=== PATIENT | male | born 1960 | race Caucasian/White ===

== ENCOUNTER 2017-02-03 14:48 | Inpatient (IN) ==
[2017-02-03] MEDS ORDERED: *HR* Morphine 2 MG/ML SYRINGE IV ONE (15:04)
--- NOTE | 2017-02-03 15:04 | Emergency Department Note ---
Disposition Clinical Impression: Sepsis, Cellulitis and abscess of lower extremity Disposition: Admitted As Inpatient Condition: Critical General Adult HPI - General Chief complaint: ED Extremity Problem,Nontraumatic Stated complaint: Left Leg infected/post surgery/fever Time Seen by Provider: 02/03/17 14:59 Source: patient, family - History of Present Illness Pain Scale: 2 - Related Data Home Medications Medication Instructions Recorded Confirmed Lisinopril/Hydrochlorothiazide 1 tab PO DAILY 12/26/16 02/03/17 [Zestoretic 20-12.5 mg Tablet] PredniSONE 60 mg PO DAILY 12/26/16 02/03/17 Azithromycin [Azithromycin] 250 mg PO AD 02/03/17 02/03/17 Ergocalciferol (VITAMIN D2) 50,000 unit PO YAN 02/03/17 02/03/17 [Vitamin D2] Folic Acid [Folic Acid] 1 mg PO DAILY 02/03/17 02/03/17 Gabapentin [Neurontin] 300 mg PO QID 02/03/17 02/03/17 Methotrexate [Otrexup] 15 mg PO FR 02/03/17 02/03/17 OxyCODONE/APAP 5/325 [Percocet 1 tab PO Q6HR PRN 02/03/17 02/03/17 5/325 MG] Allergies Allergy/AdvReac Type Severity Reaction Status Date / Time No Known Allergies Allergy Verified 12/26/16 07:12 Past Medical History - Past Medical History Medical history: Reports: hypertension Psychiatric history: Reports: no psych history - Social History Smoking Status: Never smoker Smokeless Tobacco Status: No Alcohol use: Reports: none Drug use: Reports: none Physical Exam - General General appearance: alert Course Vital Signs Temperature 97.7 F 02/03/17 14:54 Pulse Rate 114 02/03/17 14:54 Respiratory Rate 18 02/03/17 14:54 Blood Pressure 140/80 02/03/17 14:54 O2 Sat by Pulse Oximetry 95 02/03/17 14:54 Temperature 100.4 F H 02/03/17 17:34 Pulse Rate 103 02/03/17 17:17 Respiratory Rate 24 02/03/17 17:37 Blood Pressure 146/92 02/03/17 17:37 O2 Sat by Pulse Oximetry 98 02/03/17 17:17 Oxygen Delivery Oxygen Delivery Room Air Medical Decision Making - Lab Data Result diagrams: 02/03/17 15:22 02/03/17 15:22 Lab Results 02/03/17 02/03/17 02/03/17 Range/Units 15:22 15:22 15:22 WBC 19.9 H (4.3-11.1) K/mcL RBC 5.10 (4.19-5.50) M/mcL Hgb 14.9 (12.9-16.9) g/dL Hct 45.2 (37.5-50.1) % MCV 88.6 (83.0-100.0) fL MCH 29.2 (28.0-33.3) pg MCHC 33.0 (31.6-35.5) g/dL RDW 18.1 H (11.5-14.5) % Plt Count 205 (140-400) K/mcL MPV 9.0 L (9.4-12.4) fL Immature Gran % 1.6 (0-4) % Seg Neutrophils % 86.5 % Lymphocytes % 5.0 % Monocytes % 6.4 % Eosinophils % 0.1 % Basophils % 0.4 % Neutrophils # 17.2 H (1.6-8.9) K/mcL Lymphocytes # 1.0 (0.6-4.6) K/mcL Monocytes # 1.3 (0.0-1.3) K/mcL Eosinophils # 0.0 (0.0-0.6) K/mcL Basophils # 0.1 (0.0-0.2) K/mcL ESR 43 H (0-10) mm/hr PT 12.0 (9.4-12.1) Seconds INR 1.1 Sodium (136-145) mEq/L Potassium (3.5-4.5) mEq/L Chloride (98-109) mEq/L Carbon Dioxide (19-29) mEq/L BUN (8-26) mg/dL Creatinine (0.72-1.25) mg/dL Est GFR ( Amer) (> 60) Est GFR (Non-Af Amer) (> 60) BUN/Creatinine Ratio (6-26) Glucose (70-99) mg/dL Calculated Osmolality (280-300) Lactic Acid (0.5-2.2) mmol/L Calcium (8.6-10.8) mg/dL Total Bilirubin (0.2-1.2) mg/dL AST (5-34) Units/L ALT (0-55) Units/L Alkaline Phosphatase (38-126) Units/L C-Reactive Protein (Less than 5) mg/L Serum Total Protein (6.0-8.3) g/dL Albumin (3.5-5.0) g/dL Globulin (2.4-3.5) g/dL Albumin/Globulin Ratio (1.1-2.2) 02/03/17 02/03/17 Range/Units 15:22 15:22 WBC (4.3-11.1) K/mcL RBC (4.19-5.50) M/mcL Hgb (12.9-16.9) g/dL Hct (37.5-50.1) % MCV (83.0-100.0) fL MCH (28.0-33.3) pg MCHC (31.6-35.5) g/dL RDW (11.5-14.5) % Plt Count (140-400) K/mcL MPV (9.4-12.4) fL Immature Gran % (0-4) % Seg Neutrophils % % Lymphocytes % % Monocytes % % Eosinophils % % Basophils % % Neutrophils # (1.6-8.9) K/mcL Lymphocytes # (0.6-4.6) K/mcL Monocytes # (0.0-1.3) K/mcL Eosinophils # (0.0-0.6) K/mcL Basophils # (0.0-0.2) K/mcL ESR (0-10) mm/hr PT (9.4-12.1) Seconds INR Sodium 133 L (136-145) mEq/L Potassium 4.2 (3.5-4.5) mEq/L Chloride 98 (98-109) mEq/L Carbon Dioxide 24 (19-29) mEq/L BUN 17 (8-26) mg/dL Creatinine 0.74 (0.72-1.25) mg/dL Est GFR ( Amer) > 60 (> 60) Est GFR (Non-Af Amer) > 60 (> 60) BUN/Creatinine Ratio 23 (6-26) Glucose 111 H (70-99) mg/dL Calculated Osmolality 278 L (280-300) Lactic Acid 2.5 H (0.5-2.2) mmol/L Calcium 9.7 (8.6-10.8) mg/dL Total Bilirubin 1.2 (0.2-1.2) mg/dL AST 13 (5-34) Units/L ALT 27 (0-55) Units/L Alkaline Phosphatase 54 (38-126) Units/L C-Reactive Protein 33 H (Less than 5) mg/L Serum Total Protein 6.9 (6.0-8.3) g/dL Albumin 3.6 (3.5-5.0) g/dL Globulin 3.3 (2.4-3.5) g/dL Albumin/Globulin Ratio 1.1 (1.1-2.2) Critical Care Time Critical Care Time: Yes Total Critical Care Time: 30 Attestation: The patient presented with cellulitis and meets criteria for sepsis with leukocytosis, elevated lactic acid, tachycardia. Broad spectrum antibiotics initiated and patient admitted to the medicine service Attestation Statement - Attestation Attestation: I examined this patient and my medical decision-making was reviewed with the [employer]ACING [employer] SET UP OPERATOR/PA/Advanced Practice Nurse/Resident Physician. I agree with the documented findings, disposition and treatment plan as described except to the extent set forth below. Face to face time provided Patient presents with erythema and swelling to his left thigh at the site of a recent muscle biopsy. He also reports chills, fevers, inability to sleep. Erythema with increased palpable tenderness present on exam.
[2017-02-03] MEDS ORDERED: Vancomycin 1,000 MG in D5% in Water 250 ML IVPB ONE (15:05)
[2017-02-03] MEDS ORDERED: Piperacillin/Tazobactam 3.375 GM in D5% in Water (Mini-Bag+) 100 ML IVPB ONE (15:05)
[2017-02-03] MEDS ORDERED: Ondansetron 4 MG/2 ML VIAL IVP STA (15:16)
[2017-02-03 15:34] LABS: Basophils # 0.1 K/mcL (0.0-0.2); Basophils % 0.4 %; Eosinophils % 0.1 %; Hematocrit 45.2 % (37.5-50.1); Hemoglobin 14.9 g/dL (12.9-16.9); Immature Granulocytes % 1.6 % (0-4); Mean Corpuscular Hemoglobin 29.2 pg (28.0-33.3); Mean Corpuscular Volume 88.6 fL (83.0-100.0); Monocytes # 1.3 K/mcL (0.0-1.3); Monocytes % 6.4 %; Neutrophils # 17.2 K/mcL (1.6-8.9); Platelet Count 205 K/mcL (140-400); Red Cell Distribution Width 18.1 % (11.5-14.5); Segmented Neutrophils % 86.5 %
--- NOTE | 2017-02-03 15:37 | Emergency Department Note ---
Disposition Clinical Impression: Cellulitis and abscess of lower extremity Sepsis Qualifiers: Sepsis type: sepsis due to unspecified organism Qualified Code(s): A41.9 - Sepsis, unspecified organism Disposition: Admitted As Inpatient Condition: Critical General Adult HPI - General Chief complaint: ED Extremity Problem,Nontraumatic Stated complaint: Left Leg infected/post surgery/fever Time Seen by Provider: 02/03/17 14:59 Source: patient, family Nursing Notes Reviewed: Yes Vital Signs Reviewed: Yes - History of Present Illness HPI Narrative: Mr. Martínez, a 56 yo male, presents from home by KUB with chief complaint of pain in his left thigh. Patient had a muscle biopsy performed in his left thigh on [address] Alvarez. The postop incision was well-healed. Approximately 1 week ago, patient noticed erythema on the distal aspect of the incision site. 4 days ago, patient had a single episode of pustulant drainage from the same area. This morning, patient noted chills, subjective fever, nausea, increased area of erythema. He became concerned about infection presents to the emergency department. He does have follow-up tomorrow with Dr. Alvarez but became concerned at the subjective fever and chills with the addition of mild confusion. Patient has been on methotrexate and steroids for the past 2-3 months. PMH: Hypertension, chronic vascular disease which is currently unknown to the patient or his and reportedly rare requiring biopsy for diagnosis. Pain Scale: 2 - Related Data Home Medications Medication Instructions Recorded Confirmed Lisinopril/Hydrochlorothiazide 1 tab PO DAILY 12/26/16 02/03/17 [Zestoretic 20-12.5 mg Tablet] PredniSONE 60 mg PO DAILY 12/26/16 02/03/17 Azithromycin [Azithromycin] 250 mg PO AD 02/03/17 02/03/17 Ergocalciferol (VITAMIN D2) 50,000 unit PO YAN 02/03/17 02/03/17 [Vitamin D2] Folic Acid [Folic Acid] 1 mg PO DAILY 02/03/17 02/03/17 Gabapentin [Neurontin] 300 mg PO QID 02/03/17 02/03/17 Methotrexate [Otrexup] 15 mg PO FR 02/03/17 02/03/17 OxyCODONE/APAP 5/325 [Percocet 1 tab PO Q6HR PRN 02/03/17 02/03/17 5/325 MG] Allergies Allergy/AdvReac Type Severity Reaction Status Date / Time No Known Allergies Allergy Verified 12/26/16 07:12 All systems ED: reviewed and negative except as stated. Constitutional: Reports: fever, chills, weakness Cardiovascular: Denies: chest pain, palpitations, dyspnea on exertion Respiratory: Denies: cough, dyspnea, wheezes Gastrointestinal: Reports: nausea. Denies: abdominal pain, vomiting, diarrhea, constipation Genitourinary: Denies: urgency, dysuria, frequency Musculoskeletal: Denies: back pain, neck pain, joint swelling Integumentary: Reports: lesions Hematological/Lymphatic: Denies: easy bleeding, easy bruising Past Medical History - Past Medical History Medical history: Reports: hypertension Psychiatric history: Reports: no psych history - Social History Smoking Status: Never smoker Smokeless Tobacco Status: No Alcohol use: Reports: none Drug use: Reports: none Physical Exam General: Patient is alert, oriented, and appears uncomfortable. HEENT: No facial asymmetry. Head is normocephalic and atraumatic. Trachea midline. Cardiovascular: Heart regular rate and rhythm without clicks, rubs, gallops, or murmurs. No JVD. PMI nondisplaced. Respiratory: Symmetric chest rise with good respiratory effort. Bilateral breath sounds are clear without wheezing, crackles, or rhonchi. Abdomen: Obese. Bowel sounds present normoactive x-4 quadrants. Abdomen is soft, nondistended, and nontender. No organomegaly noted. Skin: Linear surgical scar with approximately 3 cm x 2 cm area of erythema, tense, painful, lives at the epicenter of surrounding larger mild erythema approximately the size of the patient's hand. These borders have been marked, initialed, dated, and timed. Psych: Patient's affect is appropriate for situation. - General General appearance: alert Course Course Narrative: Patient SIRS positive with AMS, tachycardia, and leukocytosis. Infectious source is his left thigh biopsy wound. Lactate is elevated at 2.5. We will provide analgesia, 3 mL/kg IV fluids, empiric antibiotics. Will begin the admission process. 17:24 Patient is chilling. Temperature is 100.4. Will dose by mouth Tylenol. Spoke with the hospitalist, Dr. Hernandez, who agrees to accept the patient. Vital Signs Temperature 97.7 F 02/03/17 14:54 Pulse Rate 114 02/03/17 14:54 Respiratory Rate 18 02/03/17 14:54 Blood Pressure 140/80 02/03/17 14:54 O2 Sat by Pulse Oximetry 95 02/03/17 14:54 Temperature 100.4 F H 02/03/17 17:34 Pulse Rate 103 02/03/17 17:17 Respiratory Rate 24 02/03/17 17:37 Blood Pressure 146/92 02/03/17 17:37 O2 Sat by Pulse Oximetry 98 02/03/17 17:17 Oxygen Delivery Oxygen Delivery Room Air Medical Decision Making - Lab Data Result diagrams: 02/03/17 15:22 02/03/17 15:22 Lab Results 02/03/17 02/03/17 02/03/17 Range/Units 15:22 15:22 15:22 WBC 19.9 H (4.3-11.1) K/mcL RBC 5.10 (4.19-5.50) M/mcL Hgb 14.9 (12.9-16.9) g/dL Hct 45.2 (37.5-50.1) % MCV 88.6 (83.0-100.0) fL MCH 29.2 (28.0-33.3) pg MCHC 33.0 (31.6-35.5) g/dL RDW 18.1 H (11.5-14.5) % Plt Count 205 (140-400) K/mcL MPV 9.0 L (9.4-12.4) fL Immature Gran % 1.6 (0-4) % Seg Neutrophils % 86.5 % Lymphocytes % 5.0 % Monocytes % 6.4 % Eosinophils % 0.1 % Basophils % 0.4 % Neutrophils # 17.2 H (1.6-8.9) K/mcL Lymphocytes # 1.0 (0.6-4.6) K/mcL Monocytes # 1.3 (0.0-1.3) K/mcL Eosinophils # 0.0 (0.0-0.6) K/mcL Basophils # 0.1 (0.0-0.2) K/mcL ESR 43 H (0-10) mm/hr PT 12.0 (9.4-12.1) Seconds INR 1.1 Sodium (136-145) mEq/L Potassium (3.5-4.5) mEq/L Chloride (98-109) mEq/L Carbon Dioxide (19-29) mEq/L BUN (8-26) mg/dL Creatinine (0.72-1.25) mg/dL Est GFR ( Amer) (> 60) Est GFR (Non-Af Amer) (> 60) BUN/Creatinine Ratio (6-26) Glucose (70-99) mg/dL Calculated Osmolality (280-300) Lactic Acid (0.5-2.2) mmol/L Calcium (8.6-10.8) mg/dL Total Bilirubin (0.2-1.2) mg/dL AST (5-34) Units/L ALT (0-55) Units/L Alkaline Phosphatase (38-126) Units/L C-Reactive Protein (Less than 5) mg/L Serum Total Protein (6.0-8.3) g/dL Albumin (3.5-5.0) g/dL Globulin (2.4-3.5) g/dL Albumin/Globulin Ratio (1.1-2.2) 02/03/17/04/17 Range/Units 15:22 15:22 WBC (4.3-11.1) K/mcL RBC (4.19-5.50) M/mcL Hgb (12.9-16.9) g/dL Hct (37.5-50.1) % MCV (83.0-100.0) fL MCH (28.0-33.3) pg MCHC (31.6-35.5) g/dL RDW (11.5-14.5) % Plt Count (140-400) K/mcL MPV (9.4-12.4) fL Immature Gran % (0-4) % Seg Neutrophils % % Lymphocytes % % Monocytes % % Eosinophils % % Basophils % % Neutrophils # (1.6-8.9) K/mcL Lymphocytes # (0.6-4.6) K/mcL Monocytes # (0.0-1.3) K/mcL Eosinophils # (0.0-0.6) K/mcL Basophils # (0.0-0.2) K/mcL ESR (0-10) mm/hr PT (9.4-12.1) Seconds INR Sodium 133 L (136-145) mEq/L Potassium 4.2 (3.5-4.5) mEq/L Chloride 98 (98-109) mEq/L Carbon Dioxide 24 (19-29) mEq/L BUN 17 (8-26) mg/dL Creatinine 0.74 (0.72-1.25) mg/dL Est GFR ( Amer) > 60 (> 60) Est GFR (Non-Af Amer) > 60 (> 60) BUN/Creatinine Ratio 23 (6-26) Glucose 111 H (70-99) mg/dL Calculated Osmolality 278 L (280-300) Lactic Acid 2.5 H (0.5-2.2) mmol/L Calcium 9.7 (8.6-10.8) mg/dL Total Bilirubin 1.2 (0.2-1.2) mg/dL AST 13 (5-34) Units/L ALT 27 (0-55) Units/L Alkaline Phosphatase 54 (38-126) Units/L C-Reactive Protein 33 H (Less than 5) mg/L Serum Total Protein 6.9 (6.0-8.3) g/dL Albumin 3.6 (3.5-5.0) g/dL Globulin 3.3 (2.4-3.5) g/dL Albumin/Globulin Ratio 1.1 (1.1-2.2)
[2017-02-03 15:41] LABS: INR 1.1
[2017-02-03 15:51] LABS: Alanine Aminotransferase 27 Units/L (0-55); Albumin 3.6 g/dL (3.5-5.0); Albumin/Globulin Ratio 1.1 (1.1-2.2); Alkaline Phosphatase 54 Units/L (38-126); Aspartate Amino Transferase 13 Units/L (5-34); BUN/Creatinine Ratio 23 (6-26); Bilirubin,Total 1.2 mg/dL (0.2-1.2); Blood Urea Nitrogen 17 mg/dL (8-26); C-Reactive Protein 33 mg/L (Less than 5); Calcium 9.7 mg/dL (8.6-10.8); Carbon Dioxide 24 mEq/L (19-29); Chloride 98 mEq/L (98-109); Globulin 3.3 g/dL (2.4-3.5); Glucose 111 mg/dL (70-99); Osmolality,Calculated 278 (280-300); Potassium 4.2 mEq/L (3.5-4.5); Sodium 133 mEq/L (136-145); Total Protein 6.9 g/dL (6.0-8.3); eGFR For African Americans > 60 (> 60); eGFR For Non-African Americans > 60 (> 60)
[2017-02-03] MEDS ORDERED: SODIUM CHLORIDE IVC SCH (16:00)
[2017-02-03] MEDS ORDERED: Acetaminophen 325 MG TABLET PO ONE (17:23)
[2017-02-03] MEDS ORDERED: *HR* OxyCODONE/APAP 5/325 TABLET PO PRN (19:59)
[2017-02-03] MEDS ORDERED: Vancomycin 1,750 MG in D5% in Water 250 ML IVPB SCH (20:00)
[2017-02-03] MEDS ORDERED: Ondansetron 4 MG/2 ML VIAL IVP PRN (20:05)
[2017-02-03] MEDS ORDERED: *HR* Morphine 2 MG/ML SYRINGE IVP PRN (20:05)
[2017-02-03] MEDS ORDERED: Naloxone 0.4 MG/ML INJ IVP PRN (20:05)
--- NOTE | 2017-02-03 20:21 | Internal Med History&Physical ---
Date of Encounter: 02/03/17 Time of Encounter: 18:15 Internal Medicine - H&P: HPI Chief complaint: fever, confusion, left thig pain and wound wound dehiscence and infection. Admitted From: Emergency Dept Plans for Post Hospital Care: Home History of present illness: Mr. 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 presents 1 day of confusion and fever. He also reports purulent discharged from a post-surgical thigh wound dehiscence of 1 week duration, as well as pain and redness in the surgical site. He underwent left lateral thigh muscle biopsy as part of evaluation for a probable rheumatides/vasculitic disorder on 12/26/2016. The procedure was performed by Dr Ferris on recommendation of his acute care clinical nurse specialist, Dr Weeks. The incison apparently healed well, only to breakdown in its lower end with purulent discharge 1 week ago. He reports constitutional symptoms like fever, chills, and diaphoresis. He also reports extending erythema at the wound site. No urinary symptoms. Besides confusion, no other new-onset neurological symptoms, specifcally no neck stiffness, headaches, blurry vision or focal weakness. No diarrhea or constipation. He has taking corticosteroids and methotrexate for 3 months. He is FULL CODE per discussion. He nominates his , Blessing Martínez ([phone]) as his NOK/POA. ROS: A 10 point ROS was performed. see HPI. Positives and relevant negatives are detailed, system-symptom not mention assumed negative unless otherwise stated. Family history: HTN, HLD. CAD. DM2. Vital Signs Temperature 97.7 F 02/03/17 14:54 Pulse Rate 114 02/03/17 14:54 Respiratory Rate 18 02/03/17 14:54 Blood Pressure 140/80 02/03/17 14:54 O2 Sat by Pulse Oximetry 95 02/03/17 14:54 Temperature 100.4 F H 02/03/17 17:34 Pulse Rate 103 02/03/17 17:17 Respiratory Rate 24 02/03/17 17:37 Blood Pressure 146/92 02/03/17 17:37 O2 Sat by Pulse Oximetry 98 02/03/17 17:17 Not in distress, he is ill or toxic looking. lethargic. Flushed in the face and upper torso. He has Cushingnoid features. Not pale, anicteric, afebrile, acyanotic. Moist mucosa, no JVD. EOMI, PERRL. HEENT: No JVD, no cervical lymphadenopathy, Chest : CTAB Heart: RRR, HS1/2, no m/r/g. Abdomen: soft, obesely distended, non-tender, no guarding, no rebound, no masses, BS+ : No flank tenderness, no CVA tenderness, no suprapubic tenderness. RESHIPPING CLERK: AAO x 3, no focal neurological deficits. He intermittent somnolent, but very logical in is thought process. Neck is supple. Skin: Erythema around surgical scar with dehiscence of lower end of scar, tender ++, some fluctuance elicited, no other active skin lesion, loss of skin tugor. No inguinal lymphadenopathy. Extremities: No pedal edema, normal pedal pulses, no calf tenderness. Lab Results 02/03/17 02/03/17 02/03/17 Range/Units 15:22 15:22 15:22 WBC 19.9 H (4.3-11.1) K/mcL RBC 5.10 (4.19-5.50) M/mcL Hgb 14.9 (12.9-16.9) g/dL Hct 45.2 (37.5-50.1) % MCV 88.6 (83.0-100.0) fL MCH 29.2 (28.0-33.3) pg MCHC 33.0 (31.6-35.5) g/dL RDW 18.1 H (11.5-14.5) % Plt Count 205 (140-400) K/mcL MPV 9.0 L (9.4-12.4) fL Immature Gran % 1.6 (0-4) % Seg Neutrophils % 86.5 % Lymphocytes % 5.0 % Monocytes % 6.4 % Eosinophils % 0.1 % Basophils % 0.4 % Neutrophils # 17.2 H (1.6-8.9) K/mcL Lymphocytes # 1.0 (0.6-4.6) K/mcL Monocytes # 1.3 (0.0-1.3) K/mcL Eosinophils # 0.0 (0.0-0.6) K/mcL Basophils # 0.1 (0.0-0.2) K/mcL ESR 43 H (0-10) mm/hr PT 12.0 (9.4-12.1) Seconds INR 1.1 Sodium (136-145) mEq/L Potassium (3.5-4.5) mEq/L Chloride (98-109) mEq/L Carbon Dioxide (19-29) mEq/L BUN (8-26) mg/dL Creatinine (0.72-1.25) mg/dL Est GFR ( Amer) (> 60) Est GFR (Non-Af Amer) (> 60) BUN/Creatinine Ratio (6-26) Glucose (70-99) mg/dL Calculated Osmolality (280-300) Lactic Acid (0.5-2.2) mmol/L Calcium (8.6-10.8) mg/dL Total Bilirubin (0.2-1.2) mg/dL AST (5-34) Units/L ALT (0-55) Units/L Alkaline Phosphatase (38-126) Units/L C-Reactive Protein (Less than 5) mg/L Serum Total Protein (6.0-8.3) g/dL Albumin (3.5-5.0) g/dL Globulin (2.4-3.5) g/dL Albumin/Globulin Ratio (1.1-2.2) 02/03/17 02/03/17 Range/Units 15:22 15:22 WBC (4.3-11.1) K/mcL RBC (4.19-5.50) M/mcL Hgb (12.9-16.9) g/dL Hct (37.5-50.1) % MCV (83.0-100.0) fL MCH (28.0-33.3) pg MCHC (31.6-35.5) g/dL RDW (11.5-14.5) % Plt Count (140-400) K/mcL MPV (9.4-12.4) fL Immature Gran % (0-4) % Seg Neutrophils % % Lymphocytes % % Monocytes % % Eosinophils % % Basophils % % Neutrophils # (1.6-8.9) K/mcL Lymphocytes # (0.6-4.6) K/mcL Monocytes # (0.0-1.3) K/mcL Eosinophils # (0.0-0.6) K/mcL Basophils # (0.0-0.2) K/mcL ESR (0-10) mm/hr PT (9.4-12.1) Seconds INR Sodium 133 L (136-145) mEq/L Potassium 4.2 (3.5-4.5) mEq/L Chloride 98 (98-109) mEq/L Carbon Dioxide 24 (19-29) mEq/L BUN 17 (8-26) mg/dL Creatinine 0.74 (0.72-1.25) mg/dL Est GFR ( Amer) > 60 (> 60) Est GFR (Non-Af Amer) > 60 (> 60) BUN/Creatinine Ratio 23 (6-26) Glucose 111 H (70-99) mg/dL Calculated Osmolality 278 L (280-300) Lactic Acid 2.5 H (0.5-2.2) mmol/L Calcium 9.7 (8.6-10.8) mg/dL Total Bilirubin 1.2 (0.2-1.2) mg/dL AST 13 (5-34) Units/L ALT 27 (0-55) Units/L Alkaline Phosphatase 54 (38-126) Units/L C-Reactive Protein 33 H (Less than 5) mg/L Serum Total Protein 6.9 (6.0-8.3) g/dL Albumin 3.6 (3.5-5.0) g/dL Globulin 3.3 (2.4-3.5) g/dL Albumin/Globulin Ratio 1.1 (1.1-2.2) xr: thigh: no radiopague foreign body thigh in the region of the surgical site. IMP Acute encephalopathy related to sepsis Sepsis complicating post-surgical wound infection Wound dehiscence differentials include: poor wound healing related to corticosteroid use, stitch/chronic inflammatory abscess Immunosuppression patient on Methotrexate and high dose prednisone. 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 PLAN Admit IVF NS @ 100 CT thigh with IV contrast IV Unasyn and vancomycin. Blood culture x 2, wound culture Optimal analgesia Hold methotrexate, continue prednisone Recheck lactate in the AM Hold Lisinopril/HCTZ in the setting of sepsis (risk of hypotension) and renal protection after administration of IV contrast. Continue essential medications of chronic morbidities Lovenox 40mg SC for DVT prophylaxis Protonix 40 mg QD for GI prophylaxis. I discussed my assessment with the patient, his was at bedside, they verbalized understanding and are agreeable to admission. He is at risk from deterioration from sepsis. Past Med Surg Social Fam HX - Past Medical History Medical history: hypertension Psychiatric history: no psych history - Social History Smoking Status: Never smoker Smokeless Tobacco Status: No Alcohol use: none Drug use: none Internal Medicine - H&P: Meds Lisinopril/Hydrochlorothiazide [Zestoretic 20-12.5 mg Tablet] 1 tab PO DAILY [History] PredniSONE 60 mg PO DAILY 12/26/16 [History] Azithromycin [Azithromycin] 250 mg PO AD 02/03/17 [History] Ergocalciferol (VITAMIN D2) [Vitamin D2] 50,000 unit PO YAN 02/03/17 [History] Folic Acid [Folic Acid] 1 mg PO DAILY 02/03/17 [History] Gabapentin [Neurontin] 300 mg PO QID 02/03/17 [History] Methotrexate [Otrexup] 15 mg PO FR 02/03/17 [History] OxyCODONE/APAP 5/325 [Percocet 5/325 MG] 1 tab PO Q6HR PRN 02/03/17 [History] Allergies No Known Allergies Allergy (Verified 12/26/16 07:12) All Systems PM: A 10-system review of systems was performed and is negative for pertinent findings except as documented above in the HPI. - Constitutional Vitals: Temp Pulse Resp BP Pulse Ox 98.2 F 100 20 137/78 97 02/03/17 19:38 02/03/17 19:38 02/03/17 19:38 02/03/17 19:38 02/03/17 19:38 Internal Med - H&P Results - Labs CBC & Chem 7: 02/03/17 15:22 02/03/17 15:22
[2017-02-03] MEDS: 0.9 % Sodium Chloride 1,000 ML IVC SCH (20:50)
[2017-02-03] MEDS: Gabapentin 300 MG CAPSULE PO SCH (20:52)
[2017-02-03] MEDS: Ampicillin/Sulbactam 3,000 MG in 0.9 % Sodium Chloride Mini Bag 100 ML IVPB SCH (23:54)
[2017-02-04] MEDS: Vancomycin 2,000 MG in D5% in Water 500 ML IVPB SCH ×2 (00:54→14:08)
[2017-02-04] MEDS: Ampicillin/Sulbactam 3,000 MG in 0.9 % Sodium Chloride Mini Bag 100 ML IVPB SCH ×3 (05:55→16:38)
[2017-02-04] MEDS: Folic Acid 1 MG TABLET PO SCH (08:04)
[2017-02-04] MEDS: Gabapentin 300 MG CAPSULE PO SCH ×4 (08:04→20:37)
[2017-02-04] MEDS: predniSONE 20 MG TABLET PO SCH (08:04)
--- NOTE | 2017-02-04 12:43 | Internal Med Progress Note ---
<Hakan Hess - Last Filed: 02/04/17 13:32> Date of Encounter: 02/04/17 Time of Encounter: 09:00 - Assessment and plan (1) Cellulitis and abscess of lower extremity Current Visit: Yes Status: Acute Assessment and plan: Significant improvement in the area of erythema No current exudate Continue current antibiotics (2) Altered mental status Current Visit: Yes Status: Acute Assessment and plan: Per emergency room physician and admitting hospitalist the patient was experiencing some confusion By all appearances this has resolved, patient is A&O 4 and demonstrates no signs of confusion currently Possibly secondary to steroids, methotrexate, or infection continue to monitor Qualifiers: Qualified Code(s): R41.82 - Altered mental status, unspecified (3) Sepsis Current Visit: Yes Status: Acute Assessment and plan: Patient with AMS, tachycardia, and leukocytosis Heart rate is trending down Continue to monitor Qualifiers: Sepsis type: sepsis due to unspecified organism Qualified Code(s): A41.9 - Sepsis, unspecified organism (4) DVT prophylaxis Current Visit: Yes Status: Acute - Subjective Interval history: Patient was seen and examined at bedside this morning. He was alert and oriented to person place time and situation. He is still having some pain in his left anterior thigh but states that this is much improved. He denies fevers /chills. He denies chest pain, shortness of breath, abdominal pain, or other new complaints. - Constitutional Vitals: Temp Pulse Resp BP Pulse Ox 97.7 F 88 18 128/76 96 02/04/17 11:37 02/04/17 11:37 02/04/17 11:37 02/04/17 11:37 02/04/17 11:37 - Head Head exam: Present: atraumatic, normocephalic - Eye Eye exam: Present: PERRL, conjuntiva pink, sclera anicteric Pupils: Present: PERRL - Neck Neck exam general surgery: Present: supple, trachea midline. Absent: lymphadenopathy - Respiratory Respiratory exam: Present: CTAB. Absent: accessory muscle use, rales, rhonchi, wheezes - Cardiovascular Cardiovascular exam: Present: RRR, +S1, +S2. Absent: diastolic murmur, gallop, rubs, systolic murmur - GI/Abdominal GI/Abdominal exam: Present: normal bowel sounds, soft, no peritoneal signs. Absent: distended, tenderness - Extremities Exam Extremities exam: Present: warm, radial pulses palpable and symetrical. Absent : calf tenderness, cyanotic, pedal edema Additional comments: Left anterior thigh with healing wound from prior biopsy site. There is no current exudate. There is some surrounding erythema and patient is still very tender to palpation however the erythema has regressed significantly relative to yesterday based on outline drawn by a marker on his skin - Neurological Exam Neurological exam: Present: oriented X3. Absent: pronater drift, facial droop, speech deficit - Skin Skin exam: Present: dry, intact Internal Medicine: Result - Labs CBC & Chem 7: 02/03/17 15:22 02/03/17 15:22 - ABG Interpretation ABG results: PT/INR, D-dimer PT 12.0 Seconds (9.4-12.1) 02/03/17 15:22 Consult Discharge Plan - Plan Referrals: David Velazquez DO [Primary Care Provider] - <Kaiden Zheng - Last Filed: 02/04/17 18:00> Date of Encounter: 02/04/17 - Constitutional Vitals: Temp Pulse Resp BP Pulse Ox 97.6 F 89 18 130/83 97 02/04/17 14:33 02/04/17 14:33 02/04/17 14:33 02/04/17 14:33 02/04/17 14:33 Internal Medicine: Result - Labs CBC & Chem 7: 02/03/17 15:22 02/03/17 15:22 - ABG Interpretation ABG results: PT/INR, D-dimer PT 12.0 Seconds (9.4-12.1) 02/03/17 15:22 - Attending Attestation I examined this patient and my medical decision-making was reviewed with the FILL TECHNICIAN/PA/Advanced Practice Nurse/Resident Physician. I agree with the documented findings, disposition and treatment plan as described except to the extent set forth below. Mr Martínez. PMH of Vasculitis. Admitted used to AMS? and possible sepsis, infection of the thigh, area where he had a biopsy recently. On IV antibiotics, both Unasyn and vancomycin. Leukocytosis on admission. However, is likely due to the fact that he is taking high-dose steroids, had leukocutosis in the past (always). Patient on both steroids and methotrexate as outpatient for his diagnosis of vasculitis. Will repeat a CBC tomorrow, he looks stable, might be discharged tomorrow in a.m. with by mouth antibiotics and continue with steroids and MTX. He follows up with Dr. Weeks in our rheumatology clinic.
[2017-02-04] MEDS: 0.9 % Sodium Chloride 1,000 ML IVC SCH (16:40)
[2017-02-05] MEDS: 0.9 % Sodium Chloride 1,000 ML IVC SCH ×4 (00:07→20:40)
[2017-02-05] MEDS: Ampicillin/Sulbactam 3,000 MG in 0.9 % Sodium Chloride Mini Bag 100 ML IVPB SCH ×5 (00:09→23:24)
[2017-02-05] MEDS: Vancomycin 2,000 MG in D5% in Water 500 ML IVPB SCH ×2 (00:44→13:23)
[2017-02-05] MEDS: *HR* OxyCODONE/APAP 5/325 TABLET PO PRN (05:52)
[2017-02-05] MEDS: predniSONE 20 MG TABLET PO SCH (07:39)
[2017-02-05] MEDS: Gabapentin 300 MG CAPSULE PO SCH ×4 (07:39→20:40)
[2017-02-05] MEDS: Folic Acid 1 MG TABLET PO SCH (07:39)
--- NOTE | 2017-02-05 08:01 | Internal Med Progress Note ---
Date of Encounter: 02/05/17 - Constitutional Vitals: Temp Pulse Resp BP Pulse Ox 98.1 F 94 16 127/75 97 02/05/17 06:50 02/05/17 06:50 02/05/17 06:50 02/05/17 06:50 02/05/17 06:50 Internal Medicine: Result - Labs CBC & Chem 7: 02/03/17 15:22 02/03/17 15:22 - ABG Interpretation ABG results: PT/INR, D-dimer PT 12.0 Seconds (9.4-12.1) 02/03/17 15:22 Consult Discharge Plan - Plan Referrals: David Velazquez DO [Primary Care Provider] -
[2017-02-05 08:23] LABS: Basophils % 0.3 %; Eosinophils # 0.1 K/mcL (0.0-0.6); Eosinophils % 0.7 %; Hematocrit 35.8 % (37.5-50.1); Immature Granulocytes % 1.5 % (0-4); Lymphocytes # 0.9 K/mcL (0.6-4.6); Lymphocytes % 7.1 %; Mean Corpuscular HGB Conc 32.4 g/dL (31.6-35.5); Mean Corpuscular Hemoglobin 29.1 pg (28.0-33.3); Mean Corpuscular Volume 89.9 fL (83.0-100.0); Mean Platelet Volume 9.3 fL (9.4-12.4); Monocytes # 0.7 K/mcL (0.0-1.3); Monocytes % 5.5 %; Neutrophils # 10.1 K/mcL (1.6-8.9); Platelet Count 142 K/mcL (140-400); Red Blood Count 3.98 M/mcL (4.19-5.50); Red Cell Distribution Width 17.3 % (11.5-14.5); Segmented Neutrophils % 84.9 %
[2017-02-05 08:24] LABS: Hemoglobin 11.6 g/dL (12.9-16.9)
[2017-02-05 08:29] LABS: BUN/Creatinine Ratio 19 (6-26); Blood Urea Nitrogen 12 mg/dL (8-26); Carbon Dioxide 23 mEq/L (19-29); Chloride 106 mEq/L (98-109); Glucose 87 mg/dL (70-99); Osmolality,Calculated 285 (280-300); Potassium 3.6 mEq/L (3.5-4.5); Sodium 138 mEq/L (136-145); eGFR For African Americans > 60 (> 60); eGFR For Non-African Americans > 60 (> 60)
[2017-02-05 08:30] LABS: Calcium 8.1 mg/dL (8.6-10.8)
[2017-02-05] MEDS: *HR* Enoxaparin 40 MG/0.4 ML SYRINGE SQ SCH (15:02)
[2017-02-05] MEDS: Lisinopril-HCTZ 20-12.5mg TABLET PO SCH (18:27)
[2017-02-06] MEDS: Vancomycin 2,000 MG in D5% in Water 500 ML IVPB SCH (00:25)
[2017-02-06] MEDS: *HR* OxyCODONE/APAP 5/325 TABLET PO PRN ×2 (00:28→05:36)
[2017-02-06 05:18] LABS: Basophils # 0.1 K/mcL (0.0-0.2); Basophils % 0.4 %; Eosinophils # 0.1 K/mcL (0.0-0.6); Eosinophils % 0.9 %; Hematocrit 35.8 % (37.5-50.1); Immature Granulocytes % 1.6 % (0-4); Lymphocytes # 1.4 K/mcL (0.6-4.6); Lymphocytes % 11.7 %; Mean Corpuscular HGB Conc 33.5 g/dL (31.6-35.5); Mean Corpuscular Hemoglobin 30.1 pg (28.0-33.3); Mean Corpuscular Volume 89.7 fL (83.0-100.0); Mean Platelet Volume 9.3 fL (9.4-12.4); Monocytes # 0.8 K/mcL (0.0-1.3); Monocytes % 6.9 %; Neutrophils # 9.3 K/mcL (1.6-8.9); Platelet Count 165 K/mcL (140-400); Red Blood Count 3.99 M/mcL (4.19-5.50); Red Cell Distribution Width 17.1 % (11.5-14.5); Segmented Neutrophils % 78.5 %
[2017-02-06] MEDS: Ampicillin/Sulbactam 3,000 MG in 0.9 % Sodium Chloride Mini Bag 100 ML IVPB SCH (05:36)
[2017-02-06] MEDS: *HR* Enoxaparin 40 MG/0.4 ML SYRINGE SQ SCH (05:36)
[2017-02-06 06:49] VITALS: BP 136/87
[2017-02-06] MEDS: Folic Acid 1 MG TABLET PO SCH (08:31)
[2017-02-06] MEDS: Gabapentin 300 MG CAPSULE PO SCH (08:31)
[2017-02-06] MEDS: predniSONE 20 MG TABLET PO SCH (08:31)
[2017-02-06] MEDS: Lisinopril-HCTZ 20-12.5mg TABLET PO SCH (08:31)
--- NOTE | 2017-02-06 12:20 | Discharge Summary ---
Date of Encounter: 02/06/17 Time of Encounter: 12:18 - Discharge Diagnosis (1) Cellulitis and abscess of lower extremity Priority: Primary Status: Acute (2) DVT prophylaxis Priority: Secondary Status: Acute - Discharge Medications Prescriptions: OxyCODONE/APAP 5/325 [Percocet 5/325 MG] 1 each PO Q6HR PRN #30 tablet PRN Reason: Moderate Pain Sulfamethoxazole/Trimeth DS [Bactrim DS] 1 each PO BID #14 tablet Home Medications: Lisinopril/Hydrochlorothiazide [Zestoretic 20-12.5 mg Tablet] 1 tab PO DAILY [History] PredniSONE 60 mg PO DAILY 12/26/16 [History] Ergocalciferol (VITAMIN D2) [Vitamin D2] 50,000 unit PO YAN 02/03/17 [History] Folic Acid 1 mg PO DAILY 02/03/17 [History] Gabapentin [Neurontin] 300 mg PO QID 02/03/17 [History] Methotrexate [Otrexup] 15 mg PO FR 02/03/17 [History] OxyCODONE/APAP 5/325 [Percocet 5/325 MG] 1 tab PO Q6HR PRN 02/03/17 [History] OxyCODONE/APAP 5/325 [Percocet 5/325 MG] 1 each PO Q6HR PRN #30 tablet 02/06/17 [Rx] Sulfamethoxazole/Trimeth DS [Bactrim DS] 1 each PO BID #14 tablet 02/06/17 [Rx] Allergies/Adverse Reactions: Allergies No Known Allergies Allergy (Verified 12/26/16 07:12) Date of admission: 02/03/17 20:05 Primary care physician: David Velazquez Consults: 02/06/17 09:24 Consult to Wound Care [CONS] Routine Reason for Consult: please evlauate for the left thigh ope wound that is draining pus for wound cleanig instructions before dc. thank you Call Completed: No Discharging clinician: Max Roberson Anticipated date of discharge: 02/06/17 - Patient Status Disposition: Home, Self-Care Condition: Fair Functional capacity at discharge: independent ambulation Overall status at discharge: patient is back to baseline - Discharge Instructions Instructions: Cellulitis (DC) Follow Up With: Ambrose Ferris DO [Partnered Physician] - 02/12/17 9:00 am Lakiesha Weeks [Student Nurse] - 02/15/17 3:40 pm David Velazquez, [Primary Care Provider] - (Dr. Velazquez would like the patient to follow up with the surgeon who did the biopsy and not with his office right now. Dr. Werner office spoke with patient about this. Thank you) - Diet and Activity Activity: resume usual activities as tolerated Diet: advance to your usual diet Interval History: Mr. 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 presents 1 day of confusion and fever. He also reports purulent discharged from a post-surgical thigh wound dehiscence of 1 week duration, as well as pain and redness in the surgical site. He underwent left lateral thigh muscle biopsy as part of evaluation for a probable rheumatides/vasculitic disorder on 12/26/2016. The procedure was performed by Dr Ferris on recommendation of his lube technician, Dr Weeks. The incison apparently healed well, only to breakdown in its lower end with purulent discharge 1 week ago. He reports constitutional symptoms like fever, chills, and diaphoresis. He also reports extending erythema at the wound site. No urinary symptoms. Besides confusion, no other new-onset neurological symptoms, specifcally no neck stiffness, headaches, blurry vision or focal weakness. No diarrhea or constipation. He has taking corticosteroids and methotrexate for 3 months. he was admitted and starded on IV antibiotics. The celluliytis and the wound looks better, isabel erythema and swelling has improved, he had pus drainage yesterday when it broke and had pus draining. today there is a large amount of yellow serous drainage. there is no fever or leucocytosis. wound care was consulted and has provided wound care insutructions. today, he is being dc in stable condition to follow up with Dr. ferris as OP. HE was also recommended t f/u with Dr. Collazo for the prednisone and methotrexate. Hospital course: Mr. Martínez is a 56 year old male Time spent discussing smoking cessation with patient: more than 10 minutes - Time Spent with Patient Total time spent providing and/or coordinating discharge services: Greater than 30 minutes - Constitutional Vitals: Temp Pulse Resp BP Pulse Ox 97.6 F 93 16 136/87 96 03/08/17 06:48 02/06/17 06:48 02/06/17 06:48 02/06/17 06:48 02/06/17 06:48 General appearance: Present: A&O X 3, no acute distress Exam: - Head Head exam: Present: atraumatic, normocephalic - Eye Eye exam: Present: PERRL, conjuntiva pink, sclera anicteric - Neck Neck exam general surgery: Present: tenderness, supple, trachea midline. Absent : lymphadenopathy Additional comments: large indurated area in the left lateral portion of neck, erythematous and tender to palpation; inferior to angle of jaw and above the clavicle; no lymphadenopathy appreciated - Respiratory Respiratory exam: Present: CTAB. Absent: accessory muscle use, rales, rhonchi, wheezes - Cardiovascular Cardiovascular exam: Present: RRR, +S1, +S2. Absent: diastolic murmur, gallop, rubs, systolic murmur - GI/Abdominal GI/Abdominal exam: Present: normal bowel sounds, soft, no peritoneal signs. Absent: distended, firm, guarding, hernia, tenderness - Extremities Exam Extremities exam: Present: warm, radial pulses palpable and symetrical. Absent : calf tenderness, cyanotic, pedal edema HAS A open sound at the left thigh on the lateral side, isabel erythema and the swelling has improved, its now draining minimal serosanguinous fluid, mild tenderness. - Neurological Exam Neurological exam: Present: alert, no focal deficits. Absent: facial droop, speech deficit - Skin Skin exam: Present: dry, intact
[2017-02-06] MEDS ORDERED: Aminoglycoside Consult 1 EACH MC ONE (13:12)
== END 2017-02-06 13:13 | disposition home or self-care (01) | DRG 871 ==
LOC: 3ANU 14:48 → EMEROO 14:48 → 3ANU 17:50 → SUATTDRO 20:05
PROVIDERS: ADMIT Family Medicine; ATTEND Internal Medicine

== ENCOUNTER 2017-02-09 02:28 | Inpatient (IN) ==
--- NOTE | 2017-02-09 03:16 | Emergency Department Note ---
Disposition Clinical Impression: Cellulitis Qualifiers: Site of cellulitis: extremity Site of cellulitis of extremity: lower extremity Laterality: left Qualified Code(s): L03.116 - Cellulitis of left lower limb Disposition: Admitted As Inpatient Condition: Good Time of Disposition: 04:59 General Adult HPI - General Chief complaint: ED Skin/Abscess/Foreign Body Stated complaint: LLE INFECTION Time Seen by Provider: 02/09/17 02:42 Source: patient Limitations: no limitations Nursing Notes Reviewed: Yes Vital Signs Reviewed: Yes - History of Present Illness HPI Narrative: She was released from the hospital on Saturday for a left upper extremity skin infection. He had surgery to this site on December 26. He states today he noticed an increase in swelling and pain to the area. Also more reddening. He is also stating he has found a string that is sticking out near the incision site. Pain Scale: 8 - Related Data Home Medications Medication Instructions Recorded Confirmed Lisinopril/Hydrochlorothiazide 1 tab PO DAILY 12/26/16 02/09/17 [Zestoretic 20-12.5 mg Tablet] PredniSONE 60 mg PO DAILY 12/26/16 02/09/17 Ergocalciferol (VITAMIN D2) 50,000 unit PO YAN 02/03/17 02/09/17 [Vitamin D2] Folic Acid 1 mg PO DAILY 02/03/17 02/09/17 Gabapentin [Neurontin] 300 mg PO TID 02/03/17 02/09/17 Methotrexate [Otrexup] 15 mg PO FR 02/03/17 02/09/17 Alendronate Sodium 70 mg PO QWEEK 02/09/17 02/09/17 OxyCODONE/APAP 5/325 [Percocet 1 tab PO Q6H PRN 02/09/17 02/09/17 5/325 MG] Sulfamethoxazole/Trimeth DS 1 tab PO BID 02/09/17 02/09/17 [Bactrim Ds] Allergies Allergy/AdvReac Type Severity Reaction Status Date / Time No Known Allergies Allergy Verified 02/09/17 02:33 All systems ED: reviewed and negative except as stated. Constitutional: Denies: fever, chills ENT ED: Denies: ear pain, throat pain, congestion, dysphagia Cardiovascular: Denies: chest pain, palpitations, edema, syncope Respiratory: Denies: cough, dyspnea Gastrointestinal: Denies: abdominal pain, nausea, vomiting, diarrhea Genitourinary: Denies: dysuria, frequency, hematuria Musculoskeletal: Denies: back pain, neck pain Integumentary: Reports: other (Increasing reddening to the left upper veras of the left lower extremity. Noticed a string sticking out of his leg. Around the incision site.). Denies: rash Neurological: Denies: headache, weakness, abnormal gait Past Medical History - Past Medical History Attestation: Yes The following information was validated with the patient. Source: patient Medical history: Reports: hypertension Surgical history: Reports: other (left leg muscle biopsy) Psychiatric history: Reports: no psych history - Social History Smoking Status: Never smoker Smokeless Tobacco Status: No Alcohol use: Reports: none Drug use: Reports: none Physical Exam - General Limitations: no limitations General appearance: alert, in no apparent distress - Head Head exam: atraumatic, normocephalic, normal inspection - Eye Eye exam: Present: normal appearance, PERRL, EOMI. Absent: scleral icterus - ENT ENT exam: normal exam, normal oropharynx, mucous membranes moist - Neck Neck exam: Present: normal inspection, full ROM, trachea midline. Absent: tenderness, meningismus - Respiratory Respiratory exam: Present: normal lung sounds bilaterally. Absent: respiratory distress - Cardiovascular Cardiovascular exam: Present: regular rate, normal rhythm, normal heart sounds - Abdominal Exam Abdominal exam: Present: soft, Non-Tender, organomegaly. Absent: tenderness, distention, guarding, rebound, rigidity - Expanded Upper Extremity Exam Shoulder exam: Present: normal inspection, full ROM Arm exam: Present: normal inspection, full ROM Elbow exam: Present: normal inspection, full ROM Forearm/Wrist exam: Present: normal inspection, full ROM Hand exam: Present: normal inspection, full ROM Vascular exam: Normal: capillary refill, radial pulse - Expanded Lower Extremity Exam Hip/Pelvis exam: Present: normal inspection, full ROM Upper leg exam: Present: tenderness 1 - previous incision site. center, nonhealed. No discharge. suture coming through skin. 2 - large area of erythema. 3 - erythema Knee exam: Present: normal inspection, full ROM Lower leg exam: Present: normal inspection, full ROM Ankle exam: Present: normal inspection, full ROM Foot/toe exam: Present: normal inspection, full ROM Neurovascular/Tendon exam: Absent: motor deficit, sensory deficit, tendon deficit - Back Exam Back exam: Present: normal inspection, full ROM. Absent: tenderness, CVA tenderness (R), CVA tenderness (L) - Neurological Exam Neurological exam: Present: alert, oriented X3 - Psychiatric Psychiatric exam: Present: normal affect, normal mood - Skin Skin exam: Present: warm, dry, intact, normal color. Absent: rash, cyanosis Course Course Narrative: Patient presenting to emergency department after having an increase in swelling and erythema to a previous incision site. He was released from the hospital on Saturday for infections in this area. The area has increased in size since then. The erythematous region extends to the posterior portion of his left thigh. There is an increased pain to the incision site. The incision site is open in the center. There is no drainage I can express. There is a suture string protruding from the skin around this area. Patient denies any fevers or chills. He denies any recent illnesses other than leg swelling and edema and increase in pain. Pt had a Muscle biopsy December 26 and stated that everything went well and he was healing appropriately however about a week ago is when he started having the infection issue. We will get a CT with contrast of this extremity as well as basic lab work. I anticipate admitting patient for more IV antibiotics as the area has enlarged. - Reevaluation(s) Reevaluation #1: Sensation CT of his legs showed possible cellulitis. No abscess. We will admit patient for IV antibiotic therapy due to him being immunocompromised on methotrexate as well as just recently receiving IV antibiotics in the area increasing in pain and erythema. Time: 04:42 - Consultations Consultation #1: Dr Vega accepted Pt in stable condition. Time: 05:12 Vital Signs Temperature 97.8 F 02/09/17 02:29 Pulse Rate 97 02/09/17 02:29 Respiratory Rate 18 02/09/17 02:29 Blood Pressure 162/97 02/09/17 02:29 O2 Sat by Pulse Oximetry 95 02/09/17 02:29 Temperature 97.6 F 02/09/17 15:19 Pulse Rate 87 02/09/17 15:19 Respiratory Rate 18 03/11/17 15:19 Blood Pressure 122/69 02/09/17 15:19 O2 Sat by Pulse Oximetry 97 02/09/17 15:19 Oxygen Delivery Oxygen Delivery Room Air Medical Decision Making - Lab Data Result diagrams: 02/09/17 03:25 02/09/17 03:25 Lab Results 02/09/17 02/09/17 Range/Units 03:25 03:25 WBC 9.3 (4.3-11.1) K/mcL RBC 4.63 (4.19-5.50) M/mcL Hgb 13.6 D (12.9-16.9) g/dL Hct 41.9 (37.5-50.1) % MCV 90.5 (83.0-100.0) fL MCH 29.4 (28.0-33.3) pg MCHC 32.5 (31.6-35.5) g/dL RDW 17.5 H (11.5-14.5) % Plt Count 335 D (140-400) K/mcL MPV 8.5 L (9.4-12.4) fL Immature Gran % 4.6 H (0-4) % Seg Neutrophils % 67.6 % Lymphocytes % 16.7 % Monocytes % 9.0 % Eosinophils % 0.5 % Basophils % 1.6 % Neutrophils # 6.3 (1.6-8.9) K/mcL Lymphocytes # 1.6 (0.6-4.6) K/mcL Monocytes # 0.8 (0.0-1.3) K/mcL Eosinophils # 0.1 (0.0-0.6) K/mcL Basophils # 0.2 (0.0-0.2) K/mcL Immature Plt Fraction 1.4 (1.1-6.1) % Sodium 139 (136-145) mEq/L Potassium 4.1 (3.5-4.5) mEq/L Chloride 103 (98-109) mEq/L Carbon Dioxide 26 (19-29) mEq/L BUN 23 (8-26) mg/dL Creatinine 0.76 (0.72-1.25) mg/dL Est GFR ( Amer) > 60 (> 60) Est GFR (Non-Af Amer) > 60 (> 60) BUN/Creatinine Ratio 30 H (6-26) Glucose 117 H (70-99) mg/dL Calculated Osmolality 293 (280-300) Calcium 9.4 (8.6-10.8) mg/dL Attestation Statement - Attestation Attestation: I examined this patient and my medical decision-making was reviewed with the LEGGER PRESS OPERATOR/PA/Advanced Practice Nurse/Resident Physician. I agree with the documented findings, disposition and treatment plan as described except to the extent set forth below. Patient to emergency department complaining of some redness on his left leg. Patient had a recent muscle biopsy performed by surgery. He was admitted for an infection and had a packing placed. He states it was getting better but now is getting more red and painful. He is currently on methotrexate and high dose steroids. Exam is awake and alert in no distress. Afebrile. He has erythema surrounding the wound with a packing over the left anterior thigh. Plan. Patient with cellulitis. Repeat CT does not show any obvious abscess. Patient is immunocompromised. IV antibiotics and admitted.
[2017-02-09 03:33] LABS: Basophils # 0.2 K/mcL (0.0-0.2); Basophils % 1.6 %; Eosinophils # 0.1 K/mcL (0.0-0.6); Eosinophils % 0.5 %; Hematocrit 41.9 % (37.5-50.1); Immature Granulocytes % 4.6 % (0-4); Immature Platelets 1.4 % (1.1-6.1); Lymphocytes # 1.6 K/mcL (0.6-4.6); Lymphocytes % 16.7 %; Mean Corpuscular HGB Conc 32.5 g/dL (31.6-35.5); Mean Corpuscular Hemoglobin 29.4 pg (28.0-33.3); Mean Corpuscular Volume 90.5 fL (83.0-100.0); Mean Platelet Volume 8.5 fL (9.4-12.4); Monocytes # 0.8 K/mcL (0.0-1.3); Neutrophils # 6.3 K/mcL (1.6-8.9); Platelet Count 335 K/mcL (140-400); Red Blood Count 4.63 M/mcL (4.19-5.50); Red Cell Distribution Width 17.5 % (11.5-14.5); Segmented Neutrophils % 67.6 %
[2017-02-09 03:39] LABS: Hemoglobin 13.6 g/dL (12.9-16.9)
[2017-02-09 03:45] LABS: BUN/Creatinine Ratio 30 (6-26); Blood Urea Nitrogen 23 mg/dL (8-26); Calcium 9.4 mg/dL (8.6-10.8); Carbon Dioxide 26 mEq/L (19-29); Chloride 103 mEq/L (98-109); Glucose 117 mg/dL (70-99); Osmolality,Calculated 293 (280-300); Potassium 4.1 mEq/L (3.5-4.5); Sodium 139 mEq/L (136-145); eGFR For African Americans > 60 (> 60); eGFR For Non-African Americans > 60 (> 60)
[2017-02-09] MEDS ORDERED: *HR* OxyCODONE/APAP 5/325 TABLET PO ONE (03:46)
[2017-02-09] MEDS ORDERED: Vancomycin 1,000 MG in D5% in Water 250 ML IVPB ONE (04:45)
[2017-02-09] MEDS ORDERED: MetroNIDAZOLE 500 MG/100 ML 500 MG/100 ML BAG IVPB ONE (04:47)
[2017-02-09] MEDS ORDERED: Cefepime HCl 2,000 MG in D5% in Water (Mini-Bag+) 100 ML IVPB ONE (04:48)
[2017-02-09] MEDS ORDERED: Ondansetron ODT 4 MG TAB.RAPDIS SL PRN (05:58)
[2017-02-09] MEDS ORDERED: Naloxone 0.4 MG/ML INJ IVP PRN (05:58)
[2017-02-09] MEDS ORDERED: Acetaminophen 325 MG TABLET PO PRN (05:58)
[2017-02-09] MEDS ORDERED: *HR* Heparin 5,000 UNIT/ML VIAL SQ SCH (06:00)
--- NOTE | 2017-02-09 06:09 | Internal Med History&Physical ---
Date of Encounter: 02/09/17 Time of Encounter: 06:07 Assessment and Plan (1) Cellulitis Current visit: Yes Status: Acute IV antibiotics: vancomycin and zosyn culture wound warm compress daily wound care venous doppler LLE Qualifiers: Site of cellulitis: extremity Site of cellulitis of extremity: lower extremity Laterality: left Qualified Code(s): L03.116 - Cellulitis of left lower limb (2) Vasculitis determined by biopsy of muscle Current visit: Yes Status: Chronic continue home medications - hold methotrexate (3) HTN (hypertension) Current visit: Yes Status: Chronic continue home medication Qualifiers: Hypertension type: essential hypertension Qualified Code(s): I10 - Essential (primary) hypertension Internal Medicine - H&P: HPI Chief complaint: LLE pain with swelling and erythema Admitted From: Emergency Dept Plans for Post Hospital Care: Home History of present illness: Mr. Martínez is a 56 year old male who had a recent muscle biopsy on December 26 ( at [facility]) that was "99% healed" when it busted open for the first time and the patient had to be admitted to the hospital 6 days ago for a total of 4 days. He was diagnosed with cellulitis and given IV antibiotics while inpatient and discharged on Bactrim DS. He returns tonight due to increased pain, erythema, and swelling of the extremity. He has been packing his wound as he was taught during his last admission, but noticed some sutures coming from the incision tonight. He also expressed some pus while changing the packing. His left foot is swollen, which has not previously happened. Mr. Martínez is on methotrexate and prednisone for treatment of vasculitis. Past Med Surg Social Fam HX - Past Medical History Medical history: hypertension, other (vasculitis) Psychiatric history: no psych history - Past Surgical History Surgical History: other (left vastus lateralis muscle biopsy, R rotator cuff) - Social History Smoking Status: Former smoker Smokeless Tobacco Status: No Alcohol use: none Drug use: none Internal Medicine - H&P: Meds Lisinopril/Hydrochlorothiazide [Zestoretic 20-12.5 mg Tablet] 1 tab PO DAILY [History] PredniSONE 60 mg PO DAILY 12/26/16 [History] Ergocalciferol (VITAMIN D2) [Vitamin D2] 50,000 unit PO YAN 02/03/17 [History] Folic Acid 1 mg PO DAILY 02/03/17 [History] Gabapentin [Neurontin] 300 mg PO QID 02/03/17 [History] Methotrexate [Otrexup] 15 mg PO FR 02/03/17 [History] Sulfamethoxazole/Trimeth DS [Bactrim DS] 1 each PO BID #14 tablet 02/06/17 [Rx] Allergies No Known Allergies Allergy (Verified 02/09/17 02:33) All Systems PM: A 10-system review of systems was performed and is negative for pertinent findings except as documented above in the HPI. - Constitutional Vitals: Temp Pulse Resp BP Pulse Ox 97.8 F 97 18 137/84 95 02/09/17 02:29 02/09/17 02:29 02/09/17 05:59 02/09/17 05:59 02/09/17 02:29 General appearance: Present: A&O X 3, pleasant, no acute distress, answers questions appropriately - Head Head exam: Present: atraumatic, normocephalic - Eye Eye exam: Present: PERRL, conjuntiva pink, sclera anicteric Pupils: Present: PERRL - Neck Neck exam general surgery: Present: supple, trachea midline. Absent: lymphadenopathy - Respiratory Respiratory exam: Present: CTAB. Absent: accessory muscle use, rales, rhonchi, wheezes - Cardiovascular Cardiovascular exam: Present: RRR, +S1, +S2. Absent: diastolic murmur, gallop, rubs, systolic murmur - GI/Abdominal GI/Abdominal exam: Present: normal bowel sounds, soft, no peritoneal signs. Absent: distended, tenderness - Extremities Exam Extremities exam: Absent: normal inspection Additional comments: Bilateral: dorsalis pedis pulses palpable +2/4 Left: 2+ pitting edema; incision with packing distal lateral thigh, small (<1cm ) area of induration proximal medial to incision (patient will point to this location as his point of maximal pain); erythema surrounding incision mostly proximal and medial to incision (has been marked with pen) - Neurological Exam Neurological exam: Present: CN II-XII intact, oriented X3, no focal deficits. Absent: pronater drift, facial droop, speech deficit - Skin Additional comments: erythema of left leg with open incision Internal Med - H&P Results - Labs CBC & Chem 7: 02/09/17 03:25 02/09/17 03:25
[2017-02-09] MEDS ORDERED: Furosemide 20 MG/2 ML VIAL IVP ONE (06:43)
--- NOTE | 2017-02-09 06:43 | Event Note ---
Date of Encounter: 02/09/17 Time of Encounter: 06:40 Patient seen and examined with resident. Will need another 1-2 days of IV antibiotics. Vanc and zosyn. Continue his prednisone dose 60 mg. venous doppler of LLE to r/o DVT. One dose of IV lasix.
[2017-02-09] MEDS ORDERED: Folic Acid 1 MG TABLET PO SCH (09:00)
[2017-02-09] MEDS ORDERED: Lisinopril-HCTZ 20-12.5mg TABLET PO SCH (09:00)
[2017-02-09] MEDS ORDERED: Vancomycin 1,750 MG in D5% in Water 500 ML IVPB SCH (09:00)
[2017-02-09] MEDS ORDERED: predniSONE 20 MG TABLET PO SCH ×2 (09:00)
[2017-02-09] MEDS: Gabapentin 300 MG CAPSULE PO SCH ×3 (09:16→16:50)
--- NOTE | 2017-02-09 09:47 | Event Note ---
Date of Encounter: 02/09/17 Time of Encounter: 09:10 56 YEAR OLD MALE ON METHOTREXATE AND CORTICOSTEROID FOR VACSULITIS UNDER CARE OF DR HAYDEN, readmitted with non-healing post surgical wound. Site shows a stitch. IMP Stitch abscess Plan De-escalate antiotics Consult surgery for stitch removal
[2017-02-09] MEDS ORDERED: Ampicillin/Sulbactam 3,000 MG in 0.9 % Sodium Chloride Mini Bag 100 ML IVPB SCH (12:00)
[2017-02-09] MEDS ORDERED: Piperacillin/Tazobactam 3.375 GM in D5% in Water (Mini-Bag+) 100 ML IVPB SCH (12:00)
--- NOTE | 2017-02-09 15:19 | Event Note ---
Date of Encounter: 02/09/17 Time of Encounter: 02:00 The patient was seen and examined by Dr. Ferris. The dressing on the left thigh was removed and the wound was visualized. Visible portion of the stitch present was removed with forceps. The wound packing was replaced and the wound was redressed. No active signs of cellulitis. The patient has an outpatient followup appointment with Dr. Ferris on Saturday currently. From a surgical standpoint this patient is cleared for discharge and management as an outpatient with wound recheck at followup appointment with Dr. Ferris on 02/12/17.
[2017-02-09 15:22] VITALS: BP 122/69
--- NOTE | 2017-02-09 15:55 | Discharge Summary ---
Date of Encounter: 02/09/17 Time of Encounter: 11:20 - Discharge Diagnosis (1) Postoperative stitch abscess Priority: Primary Status: Acute Comments: Discharge to continue Bactrim. Follow-up with Dr Ferris on Saturday. (2) HTN (hypertension) Priority: Secondary Status: Chronic Qualifiers: Hypertension type: essential hypertension Qualified Code(s): I10 - Essential (primary) hypertension (3) Vasculitis determined by biopsy of muscle Priority: Secondary Status: Chronic - Discharge Medications Home Medications: Lisinopril/Hydrochlorothiazide [Zestoretic 20-12.5 mg Tablet] 1 tab PO DAILY [History] PredniSONE 60 mg PO DAILY 12/26/16 [History] Ergocalciferol (VITAMIN D2) [Vitamin D2] 50,000 unit PO YAN 02/03/17 [History] Folic Acid 1 mg PO DAILY 02/03/17 [History] Gabapentin [Neurontin] 300 mg PO TID 02/03/17 [History] Methotrexate [Otrexup] 15 mg PO FR 02/03/17 [History] Alendronate Sodium 70 mg PO QWEEK 02/09/17 [History] OxyCODONE/APAP 5/325 [Percocet 5/325 MG] 1 tab PO Q6H PRN 02/09/17 [History] Sulfamethoxazole/Trimeth DS [Bactrim Ds] 1 tab PO BID 02/09/17 [History] Allergies/Adverse Reactions: Allergies No Known Allergies Allergy (Verified 02/09/17 02:33) Procedures/tests Complete & Pending: Procedures Performed prior 72 hours Category Date Time Status EV venous imaging LE LT Routine Y 02/09/17 06:41 Ordered Date of admission: 02/09/17 06:26 Primary care physician: David Velazquez Consults: 02/09/17 09:42 Consult to Surgery [CONS] Routine Consulting Provider: Surgery [facility] Reason for Consult: STITCH ABSCESS Call Completed: Yes Discharging clinician: Shiva Hernandez Anticipated date of discharge: 02/09/17 - Patient Status Disposition: Home, Self-Care Condition: Good Overall status at discharge: patient is progressing back to baseline - Discharge Instructions Follow Up With: David Velazquez DO [Primary Care Provider] - Additional Instructions: Follow-up with Dr Ferris on Saturday. - Diet and Activity Activity: resume usual activities as tolerated Diet: advance to your usual diet Interval History: No systemic symptoms. Wound packing changed to day. Hospital course: Mr. 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 re-present with continuing sropurulent discharge from post- surgical wound site. He was recently discharged for same and sent home on antiboitics. Initial work-up at last hospitalization showed no foreign body in the wound. Re-assessment today showed an unabsorbed stitch protruding through wound. Finding consistent with stitch abscess. The patient was initially treated wwth IV Zosyn and Vancomycin. This was de-escalated when it was obvious that this is a stitch abscess. The patient was evaluated by Dr Ferris (general surgeon). He external part of stitch removed. wound packed. He will follow-up with Dr Ferris on Saturday. - Time Spent with Patient Total time spent providing and/or coordinating discharge services: Specific discharge activities: as tolerated. - Constitutional Vitals: Temp Pulse Resp BP Pulse Ox 97.6 F 87 18 122/69 97 02/09/17 15:19 02/09/17 15:19 02/09/17 15:19 02/09/17 15:19 02/09/17 15:19 General appearance: Present: A&O X 3, pleasant, no acute distress, answers questions appropriately Exam: Not in distress, he is ill or toxic looking. lethargic. Flushed in the face and upper torso. He has Cushingnoid features. Not pale, anicteric, afebrile, acyanotic. Moist mucosa, no JVD. EOMI, PERRL. HEENT: No JVD, no cervical lymphadenopathy, Chest : CTAB Heart: RRR, HS1/2, no m/r/g. Abdomen: soft, obesely distended, non-tender, no guarding, no rebound, no masses, BS+ : No flank tenderness, no CVA tenderness, no suprapubic tenderness. [employer]: AAO x 3, no focal neurological deficits. He intermittent somnolent, but very logical in is thought process. Neck is supple. Skin: surgical scar with dehiscence of lower end of scar, with stitching protruding through it, non- tender++, no fluctuance elicited, not cellulitic. No inguinal lymphadenopathy. Extremities: No pedal edema, normal pedal pulses, no calf tenderness.
[2017-02-09] MEDS ORDERED: Aminoglycoside Consult 1 EACH MC ONE (16:59)
--- NOTE | 2017-02-10 14:55 | Venous Imaging Report ---
LE Venous Duplex Patient Name:Rodney Martínez Dearl Order Number:[id number] Procedure Date:02/09/2017 Date:1960Age:56 yrs Gender:Male Location:[facility] Room #: 3A48 [place] Feeder:Maria R Muñiz RVT Referring MD:Suze Morin DO second worker:David Velazquez DO Reading MD:Matt Guerrier MD , FACS Secondary Indications: Risk Factors Yes/No None Impressions: Left lower extremity: normal superficial and deep exam. Right lower extremity: normal contralateral exam. Recommendations: Test completed on 02/09/2017 at 2:40:00 pm. Critical findings reported to Meenu LARES in person at 2:40:00 pm on 02/09/2017 by Maria R Muñiz RVT. Findings Venous Duplex Results: Right: Venous imaging of the lower extremity reveals full patency and normal vessel compressibility of the right common femoral. Doppler signals in the evaluated veins were normal. Left: Venous imaging of the lower extremity reveals full patency and normal vessel compressibility of the left distal iliac, left common femoral, left superficial femoral, left popliteal, left posterior tibial, left peroneal, left great saphenous and left lesser saphenous. Doppler signals in the evaluated veins were normal. Updated by Matt Guerrier MD, FACS on 02/10/2017 2:49:43 PM Matt Guerrier MD electronically signed on 02/10/2017 2:50:15 PM with status of Final
== END 2017-02-09 17:00 | disposition home or self-care (01) | DRG 863 ==
LOC: EMEROO 02:28 → 3ANU 02:28
PROVIDERS: ADMIT Internal Medicine; ATTEND Family Medicine

== ENCOUNTER 2019-06-29 19:10 | Inpatient (IN) ==
[2019-06-29] MEDS ORDERED: Ondansetron 4 MG/2 ML VIAL IVP ONE ×2 (20:27→22:18)
[2019-06-29] MEDS ORDERED: Morphine Sulfate 2 MG/ML SYRINGE IVP ONE (20:27)
[2019-06-29] MEDS ORDERED: 0.9 % Sodium Chloride 1,000 ML IVC ONE (20:27)
[2019-06-29] MEDS ORDERED: Isovue-370 500 ML BOTTLE IVP ONE (20:29)
[2019-06-29 20:40] LABS: Basophils # 0.1 K/mcL (0.0-0.2); Basophils % 0.3 %; Eosinophils % 0.1 %; Hematocrit 43.6 % (37.5-50.1); Immature Granulocytes % 0.6 % (0-4); Lymphocytes # 0.4 K/mcL (0.6-4.6); Lymphocytes % 1.9 %; Mean Corpuscular HGB Conc 34.4 g/dL (31.6-35.5); Mean Corpuscular Hemoglobin 31.8 pg (28.0-33.3); Mean Corpuscular Volume 92.4 fL (83.0-100.0); Mean Platelet Volume 9.6 fL (9.4-12.4); Monocytes # 2.1 K/mcL (0.0-1.3); Monocytes % 9.4 %; Neutrophils # 19.2 K/mcL (1.6-8.9); Platelet Count 244 K/mcL (140-400); Red Blood Count 4.72 M/mcL (4.19-5.50); Red Cell Distribution Width 12.9 % (11.5-14.5); Segmented Neutrophils % 87.7 %; White Blood Count 21.9 K/mcL (4.3-11.1)
[2019-06-29 20:42] LABS: Troponin I < 0.03 ng/mL (< 0.04)
[2019-06-29 20:47] LABS: Alanine Aminotransferase 48 Units/L (7-52); Albumin 4.1 g/dL (3.5-5.7); Albumin/Globulin Ratio 1.3 (1.1-2.2); Alkaline Phosphatase 63 Units/L (34-104); Aspartate Amino Transferase 51 Units/L (13-39); BUN/Creatinine Ratio 21 (6-26); Bilirubin,Total 1.2 mg/dL (0.3-1.0); Blood Urea Nitrogen 18 mg/dL (6-20); Calcium 9.6 mg/dL (8.6-10.3); Carbon Dioxide 22 mEq/L (23-29); Chloride 98 mEq/L (98-107); Globulin 3.2 g/dL (2.4-3.5); Glucose 95 mg/dL (70-105); Lipase 150 Units/L (11-82); Osmolality,Calculated 276 (280-300); Potassium 4.4 mEq/L (3.5-5.1); Sodium 132 mEq/L (136-145); Total Protein 7.3 g/dL (6.4-8.9); eGFR For African Americans > 60 (> 60); eGFR For Non-African Americans > 60 (> 60)
[2019-06-29 21:04] LABS: Bilirubin,Urine Moderate (Negative); Blood,Urine Negative (Negative); Clarity,Urine Cloudy (Clear); Color,Urine Orange (Yellow); Glucose,Urine (UA) Normal (Normal); Ketones,Urine 15 mg/dL (Negative); Leukocyte Esterase,Urine Moderate (Negative); Nitrite,Urine Positive (Negative); PH,Urine 5.5 pH Units (5.0-8.0); Protein,Urine 100 mg/dL (Neg-Trace); Specific Gravity,Urine > 1.030 (1.010-1.025)
[2019-06-29 21:11] LABS: Bacteria,Urine None Seen per hpf (None-Few); Squamous Epithelial Cell,Urine Few per lpf (None-Few); WBC,Urine TNTC per hpf (0-3)
[2019-06-29 21:33] LABS: Hyaline Casts,Urine Few per lpf (None-Few)
[2019-06-29] MEDS ORDERED: cefTRIAXone 1,000 MG in 0.9 % Sodium Chloride Mini Bag 100 ML IVPB ONE (22:34)
[2019-06-30] MEDS ORDERED: Naloxone 0.4 MG/ML INJ IVP PRN (00:48)
[2019-06-30] MEDS ORDERED: *HR* Promethazine 25 MG/ML VIAL IVP ONE ×2 (02:03→20:44)
[2019-06-30] MEDS: Acetaminophen 325 MG TABLET PO PRN ×2 (05:59→16:44)
[2019-06-30] MEDS: Ondansetron 4 MG/2 ML VIAL IVP PRN ×2 (05:59→14:33)
[2019-06-30 07:13] LABS: Basophils # 0.1 K/mcL (0.0-0.2); Basophils % 0.5 %; Eosinophils # 0.2 K/mcL (0.0-0.6); Eosinophils % 1.9 %; Hematocrit 39.2 % (37.5-50.1); Immature Granulocytes % 0.5 % (0-4); Lymphocytes # 0.5 K/mcL (0.6-4.6); Lymphocytes % 4.7 %; Mean Corpuscular HGB Conc 34.2 g/dL (31.6-35.5); Mean Corpuscular Hemoglobin 32.1 pg (28.0-33.3); Mean Platelet Volume 9.3 fL (9.4-12.4); Monocytes # 1.2 K/mcL (0.0-1.3); Monocytes % 11.4 %; Neutrophils # 8.6 K/mcL (1.6-8.9); Platelet Count 211 K/mcL (140-400); Red Blood Count 4.17 M/mcL (4.19-5.50); Red Cell Distribution Width 13.1 % (11.5-14.5)
[2019-06-30 07:21] LABS: INR 1.3; Prothrombin Time 14.6 Seconds (9.4-12.1)
[2019-06-30 07:23] LABS: Activated Partial Thrombo Time 29.8 Seconds (26.0-36.0)
[2019-06-30 07:29] LABS: Hemoglobin 13.4 g/dL (12.9-16.9); White Blood Count 10.6 K/mcL (4.3-11.1)
[2019-06-30 07:33] LABS: Alanine Aminotransferase 36 Units/L (7-52); Albumin 3.5 g/dL (3.5-5.7); Albumin/Globulin Ratio 1.3 (1.1-2.2); Alkaline Phosphatase 60 Units/L (34-104); Aspartate Amino Transferase 31 Units/L (13-39); BUN/Creatinine Ratio 28 (6-26); Bilirubin,Total 0.9 mg/dL (0.3-1.0); Blood Urea Nitrogen 19 mg/dL (6-20); Carbon Dioxide 23 mEq/L (23-29); Chloride 100 mEq/L (98-107); Chol/HDL Ratio 5.1 (0-4.9); Cholesterol 123 mg/dL (< 200); Globulin 2.8 g/dL (2.4-3.5); Glucose 100 mg/dL (70-105); HDL Cholesterol 24 mg/dL (40-59); LDL Cholesterol,Calculated 69 mg/dL (0-99); Magnesium 2.3 mg/dL (1.6-2.6); Osmolality,Calculated 284 (280-300); Phosphorous 2.6 mg/dL (2.7-4.5); Potassium 3.7 mEq/L (3.5-5.1); Sodium 136 mEq/L (136-145); Total Protein 6.3 g/dL (6.4-8.9); Triglycerides 150 mg/dL (< 150); eGFR For African Americans > 60 (> 60); eGFR For Non-African Americans > 60 (> 60)
[2019-06-30] MEDS: D5% in 0.45% NACL w KCl 10 MEQ/1,000 ML MLS IVC SCH ×2 (08:51→18:25)
[2019-06-30] MEDS: Morphine Sulfate 2 MG/ML SYRINGE IVP PRN ×3 (08:51→19:53)
[2019-06-30] MEDS ORDERED: cefTRIAXone 1,000 MG in Water for inj. (sterile) 10 ML IVPB SCH (09:00)
[2019-06-30] MEDS ORDERED: Alendronate Sodium [Fosamax] 70 MG PO SCH (09:45)
[2019-06-30] MEDS ORDERED: Pregabalin 75 MG CAPSULE PO ONE (10:08)
[2019-06-30] MEDS: Valsartan 160 MG TABLET PO SCH (10:29)
[2019-06-30] MEDS: hydroCHLOROthiazide 25 MG TABLET PO SCH (11:28)
[2019-06-30] MEDS: amLODIPine 5 MG TABLET PO SCH (11:29)
[2019-06-30 13:36] LABS: VBG Ionized Calcium 1.15 mmol/L (1.15-1.35)
[2019-06-30] MEDS: Pregabalin 75 MG CAPSULE PO SCH ×2 (14:33→19:53)
[2019-06-30] MEDS ORDERED: DiphenhydraMINE CREAM 28.4 GM TUBE TP PRN (15:45)
[2019-07-01] MEDS: Morphine Sulfate 2 MG/ML SYRINGE IVP PRN ×3 (02:09→21:07)
[2019-07-01 05:50] LABS: BUN/Creatinine Ratio 23 (6-26); Blood Urea Nitrogen 16 mg/dL (6-20); Calcium 9.3 mg/dL (8.6-10.3); Carbon Dioxide 22 mEq/L (23-29); Chloride 98 mEq/L (98-107); Glucose 114 mg/dL (70-105); Lipase 91 Units/L (11-82); Osmolality,Calculated 280 (280-300); Potassium 3.8 mEq/L (3.5-5.1); Sodium 134 mEq/L (136-145); eGFR For African Americans > 60 (> 60); eGFR For Non-African Americans > 60 (> 60)
[2019-07-01] MEDS: D5% in 0.45% NACL w KCl 10 MEQ/1,000 ML MLS IVC SCH ×2 (06:56→17:04)
[2019-07-01] MEDS: Pregabalin 75 MG CAPSULE PO SCH ×3 (09:40→19:55)
[2019-07-01] MEDS: amLODIPine 5 MG TABLET PO SCH (09:41)
[2019-07-01] MEDS: predniSONE 5 MG TABLET PO SCH (09:41)
[2019-07-01] MEDS: Valsartan 160 MG TABLET PO SCH (09:41)
[2019-07-01] MEDS: hydroCHLOROthiazide 25 MG TABLET PO SCH (09:41)
[2019-07-01] MEDS: *HR* Promethazine 25 MG/ML VIAL IVP PRN ×2 (14:31→23:49)
[2019-07-01] MEDS: Acetaminophen 325 MG TABLET PO PRN (23:50)
[2019-07-02] MEDS: Morphine Sulfate 2 MG/ML SYRINGE IVP PRN ×2 (01:34→06:21)
[2019-07-02] MEDS: D5% in 0.45% NACL w KCl 10 MEQ/1,000 ML MLS IVC SCH ×2 (03:51→14:12)
[2019-07-02] MEDS: *HR* Promethazine 25 MG/ML VIAL IVP PRN ×2 (06:20→15:56)
[2019-07-02 08:55] LABS: Basophils % 0.5 %; Eosinophils # 0.2 K/mcL (0.0-0.6); Eosinophils % 2.1 %; Hematocrit 38.4 % (37.5-50.1); Hemoglobin 13.2 g/dL (12.9-16.9); Immature Granulocytes % 0.6 % (0-4); Lymphocytes # 0.5 K/mcL (0.6-4.6); Lymphocytes % 5.6 %; Mean Corpuscular HGB Conc 34.4 g/dL (31.6-35.5); Mean Corpuscular Hemoglobin 31.8 pg (28.0-33.3); Mean Corpuscular Volume 92.5 fL (83.0-100.0); Mean Platelet Volume 9.4 fL (9.4-12.4); Monocytes # 0.8 K/mcL (0.0-1.3); Monocytes % 10.1 %; Neutrophils # 6.5 K/mcL (1.6-8.9); Platelet Count 228 K/mcL (140-400); Red Blood Count 4.15 M/mcL (4.19-5.50); Red Cell Distribution Width 12.9 % (11.5-14.5); Segmented Neutrophils % 81.1 %
[2019-07-02 09:13] LABS: BUN/Creatinine Ratio 26 (6-26); Blood Urea Nitrogen 14 mg/dL (6-20); Calcium 9.2 mg/dL (8.6-10.3); Carbon Dioxide 24 mEq/L (23-29); Chloride 101 mEq/L (98-107); Glucose 122 mg/dL (70-105); Osmolality,Calculated 284 (280-300); Potassium 3.7 mEq/L (3.5-5.1); Sodium 136 mEq/L (136-145); eGFR For African Americans > 60 (> 60); eGFR For Non-African Americans > 60 (> 60)
[2019-07-02] MEDS: predniSONE 5 MG TABLET PO SCH (09:46)
[2019-07-02] MEDS: Pregabalin 75 MG CAPSULE PO SCH ×3 (09:46→21:22)
[2019-07-02] MEDS: Valsartan 160 MG TABLET PO SCH (11:48)
[2019-07-02] MEDS: amLODIPine 5 MG TABLET PO SCH (11:49)
[2019-07-02] MEDS: hydroCHLOROthiazide 25 MG TABLET PO SCH (11:49)
[2019-07-02 11:58] LABS: Alanine Aminotransferase 51 Units/L (7-52); Albumin 3.4 g/dL (3.5-5.7); Albumin/Globulin Ratio 1.2 (1.1-2.2); Alkaline Phosphatase 68 Units/L (34-104); Aspartate Amino Transferase 50 Units/L (13-39); Bilirubin,Direct 0.5 mg/dL (0.0-0.2); Bilirubin,Indirect 0.4 mg/dL (0.0-1.2); Bilirubin,Total 0.9 mg/dL (0.3-1.0); Globulin 2.8 g/dL (2.4-3.5); Total Protein 6.2 g/dL (6.4-8.9)
[2019-07-02] MEDS: Ketorolac 15 MG/ML VIAL IVP PRN ×2 (17:29→23:39)
[2019-07-02] MEDS ORDERED: *HR* Promethazine 25 MG/ML VIAL IVP PRN (23:51)
[2019-07-03] MEDS ORDERED: Metoclopramide 10 MG/2 ML VIAL IVP ONE (00:03)
[2019-07-03 02:49] LABS: Basophils # 0.1 K/mcL (0.0-0.2); Basophils % 0.7 %; Eosinophils # 0.1 K/mcL (0.0-0.6); Eosinophils % 1.3 %; Hemoglobin 13.6 g/dL (12.9-16.9); Immature Granulocytes % 0.7 % (0-4); Lymphocytes # 0.5 K/mcL (0.6-4.6); Lymphocytes % 4.6 %; Mean Corpuscular Hemoglobin 31.3 pg (28.0-33.3); Mean Corpuscular Volume 92.2 fL (83.0-100.0); Mean Platelet Volume 9.4 fL (9.4-12.4); Monocytes # 0.9 K/mcL (0.0-1.3); Monocytes % 8.4 %; Neutrophils # 8.8 K/mcL (1.6-8.9); Platelet Count 286 K/mcL (140-400); Red Blood Count 4.34 M/mcL (4.19-5.50); Red Cell Distribution Width 12.6 % (11.5-14.5); Segmented Neutrophils % 84.3 %; White Blood Count 10.5 K/mcL (4.3-11.1)
[2019-07-03 03:11] LABS: BUN/Creatinine Ratio 23 (6-26); Blood Urea Nitrogen 19 mg/dL (6-20); Calcium 9.1 mg/dL (8.6-10.3); Carbon Dioxide 20 mEq/L (23-29); Chloride 104 mEq/L (98-107); Glucose 120 mg/dL (70-105); Osmolality,Calculated 285 (280-300); Potassium 3.7 mEq/L (3.5-5.1); Sodium 136 mEq/L (136-145); eGFR For African Americans > 60 (> 60); eGFR For Non-African Americans > 60 (> 60)
[2019-07-03] MEDS: Ketorolac 15 MG/ML VIAL IVP PRN (06:27)
[2019-07-03] MEDS: predniSONE 5 MG TABLET PO SCH (08:17)
[2019-07-03] MEDS: Pregabalin 75 MG CAPSULE PO SCH (08:17)
[2019-07-03] MEDS ORDERED: Ondansetron ODT 4 MG TAB.RAPDIS SL PRN (08:24)
[2019-07-03] MEDS ORDERED: amLODIPine 5 MG TABLET PO SCH (09:00)
[2019-07-03] MEDS: D5% in 0.45% NACL w KCl 10 MEQ/1,000 ML MLS IVC SCH ×2 (09:05)
[2019-07-03 10:33] LABS: ANA IgG by ELISA NONE DETECTED (None Detected); Immunoglobulin G Subclass 4 12 mg/dL (1-123)
[2019-07-03 11:02] VITALS: BP 165/90
[2019-07-03] MEDS ORDERED: hydroCHLOROthiazide 25 MG TABLET PO SCH (11:15)
== END 2019-07-03 13:25 | disposition home or self-care (01) | DRG 439 ==
LOC: EMEROOARM 19:10 → 3BNU 19:10
PROVIDERS: ADMIT Internal Medicine Nephrology; ATTEND Internal Medicine Nephrology